=== PATIENT | female | born 1985 ===

== ENCOUNTER 2018-03-27 12:37 | Emergency (ER) | payer MEDICAID ==
[2018-03-27 12:37] VITALS: BMI 36.7
[2018-03-27 13:16] VITALS: BP 107/71; PULSE 82; RESP 18; TEMP 98.1; O2SAT 100
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
== END 2018-03-27 15:00 | disposition home or self-care (01) ==
LOC: C.ER 12:37
DX: O26.892 Other specified pregnancy related conditions, second trimester (principal); Z3A.22 22 weeks gestation of pregnancy; R10.9 Unspecified abdominal pain

== ENCOUNTER 2018-07-06 06:09 | Inpatient (IN) | payer MEDICAID ==
[2018-07-06 06:32] VITALS: BMI 38.0
[2018-07-06] MEDS ORDERED: Lactated Ringer's 1,000 ML IV ONE (06:35)
[2018-07-06] MEDS ORDERED: cefOXitin IV 2 gm in Dextrose 2 GM/50 ML BAG IVPB ONE ×2 (06:35→07:30)
[2018-07-06] MEDS ORDERED: Sodium Citrate/Citric Acid 15 ml Sol PO ONE (06:35)
[2018-07-06] MEDS ORDERED: Oxytocin 20 units in LR 2,000 ML IV ONE (07:30)
[2018-07-06] MEDS ORDERED: Sodium Citrate/Citric Acid 15 ml Sol ONE (07:31)
[2018-07-06 07:38] LABS: BASO % 0.5 % (0.0-2.0); EOS # 0.1 K/uL (0.0-0.7); EOS % 0.9 % (0.0-4.0); LYMPH # 3.3 K/uL (1.0-4.3); LYMPH % 38.9 % (20.0-40.0); MEAN CELL VOLUME 84.2 fL (81.0-99.0); MEAN CORPUSCULAR HEMOGLOBIN 28.5 pg (27.0-31.0); MEAN CORPUSCULAR HGB CONC 33.8 g/dL (33.0-37.0); MEAN PLATELET VOLUME 10.5 fL (7.2-11.7); MONO # 0.3 K/uL (0.0-0.8); MONO % 3.8 % (0.0-10.0); NEUT # 4.8 K/uL (1.8-7.0); NEUT % 55.9 % (50.0-75.0); RBC 3.87 Mil/uL (3.80-5.20); RED CELL DISTRIBUTION WIDTH 13.7 % (11.5-14.5); WHITE BLOOD COUNT 8.6 K/uL (4.8-10.8)
[2018-07-06] MEDS ORDERED: Morphine 1 mg/ml preservative-free Inj(Duramorph) ONE (09:02)
[2018-07-06] MEDS ORDERED: Oxytocin 10 Units/ml Inj ONE (09:05)
[2018-07-06] MEDS ORDERED: ePHEDrine 50 mg/ml Inj ONE (09:46)
[2018-07-06] MEDS ORDERED: Oxycodone/Acetaminophen 5/325 mg Tab PO PRN (10:26)
--- NOTE | 2018-07-06 11:17 | OBADHP ---
Datetime: 07/06/2018 07:57 Admit Comment, IP Provider: CC: Schedule c/s HPI: 32 year old female, , 1 FT girl delivery @ 6 lbs and C/s with no past medical history presents to [facility] for scheduled c/s. Per records pt LMP 10/26/17 and is LEONEL 07/12/18 per 1st s emester U/S. Pt presently denies having contractions, however, states she is having freqent mov ements. OBHx , 1st delivery 2015, 5 lb baby girl, s/p C/s @ [facility] GYNHx: irregular menstral cycle, menarch at 15 PMHx: Denies PSHx: Gastric sleeve Meds: vitamins Allergies: Seafood SHx: denies tobacco use, alcohol use, illict drug use Fhx: Mother - 59 healthy, Father - 52 - healthy Vitals: 113/70 HR 86 HEENT: Atraumatic, normocephalic Cardio: S1, S2 RR Resp: CTAL B/L Abd: Soft, nontender, 38.5 cm fundal height 32 year old F, presents for scheduled C section, currently 39 weeks and 3 days 1) Admit to L_D 2) Anticipate C/s _ start protocal 3) IV fluids 4) NPO -Solomon Barbour D.O. PGY1 Pt seen and examined with Dr. Barbour and all of his findings, assessment and POC were fully discusse d and agreed with Abdomen - PN: Normal Lungs - PN: Normal Heart - PN: Normal General - PN: Normal Presentation-Admit: Vertex FHR - Baseline A Provider: 140 Membranes, Provider: Intact Contraction Comments Provider: Ocassional Gestation - Est Wks by US: 39.3 Vital Signs Provider: Reviewed; Within Normal Limits IP Chief Complaint: Scheduled Section NICHD Variability Prov Fetus A: Moderate 6-25bpm FHR Category Provider Fetus A: Category I Genitourinary Exam: Normal EGA AdmitDate IP: 39.1 IP Adm Impression: Term, intrauterine ; No Active Labor; Intact Membranes IP Admit Plan: Initiate Section protocol
--- NOTE | 2018-07-06 11:32 | OBDS ---
DELIVERY PERSONNEL Delivery Doctor: DR CHARLEEN MEAD Scrub Nurse: Alisa Murrell Clinical Office Technician: Ang Jose RN Anesthesiologist: Manny Anderson MD MATERNAL INFORMATION Delivery Anesthesia: Spinal Medications in Delivery: PITOCIN 20 Estimated Blood Loss (ml): 600 Placenta Cultured: No Maternal Complications: None Provider Comments: Repeat LTC C/S with delivery of a viable Female from AP position and wit hout complications. Apgars 9_9 at 1 and 5 mins repectively. BW 7lbs, 1oz. Cord blood and cord pH obtained and sent.Placenta manually delivered with 3 vessel cord and discar ded. EBL 600 mls No Pathology noted Pt and both tolerated the procedure well and left the OR in S_S condition. De. Cavazos assisted throughout the entire procedure. LABOR SUMMARY EDC: 07/12/2018 00:00 No. Babies in Womb: 1 Attempted: No Labor Anesthesia: None LABOR INFORMATION Oxytocin: N/A Group B Beta Strep: Done, Result Unknown Antibiotics # of Doses: 1 Antibiotics Time of Last Dose: Steroids Given: None Reason Steroids Not Administered: Not Applicable MEMBRANES Membranes Rupture Method: Artificial Rupture of Membranes: 07/06/2018 09:34 Length of Rupture (hrs): 0.02 Amniotic Fluid Color: Clear Amniotic Fluid Amount: Moderate Amniotic Fluid Odor: Normal STAGES OF LABOR Stage 3 hrs: 0 Stage 3 min: 1 CSECTION DELIVERY Primary Indication: Previous Section Other Primary Indication: Term Secondary Indication: N/A CSection Urgency: Elective CSection Incidence: Repeat Labor: No Labor Elective: Elective CSection Incision: Lower Uterine Transverse BABY A INFORMATION Infant Delivery Date/Time: 07/06/2018 09:35 Method of Delivery: Born in Route : No : N/A Forceps: N/A Vacuum Extraction: N/A SHOULDER DYSTOCIA BABY A Infant Delivery Date/Time: 07/06/2018 09:35 PRESENTATION/POSITION BABY A Presentation: Cephalic Cephalic Presentation: Vertex Vertex Position: Right Occipital Anterior Breech Presentation: N/A PLACENTA INFORMATION BABY A Placenta Delivery Time : 07/06/2018 09:36 Placenta Method of Delivery: Expressed Placenta Status: Delivered SCORES BABY A Heart Rate 1 min: >100 bpm Resp Effort 1 min: Good Cry Reflex Irritability 1 min: Cough or Sneeze or Pulls Away Muscle Tone 1 min: Active Motion Color 1 min: Body [place], Extremities Blue Resuscitation Effort 1 min: Tactile Stimulation SCORE 1 MIN: 9 Heart Rate 5 min: >100 bpm Resp Effort 5 min: Good Cry Reflex Irritability 5 min: Cough or Sneeze or Pulls Away Muscle Tone 5 min: Active Motion Color 5 min: Body [place], Extremities Blue SCORE 5 MIN: 9 INFANT INFORMATION BABY A Gestational Age at Delivery: 39.0 Gestational Status: Term Infant Outcome : Liveborn Infant Condition : Stable Infant Sex: Female IDENTIFICATION/MEDS BABY A ID Band Number: [id number] ID Band Location: Left Leg; Left Arm Sensor Applied: Yes Sensor Number: [id number] Sensor Location : Cord Clamp WEIGHT/LENGTH BABY A Infant Birthweight (gms): 3205 Infant Weight (lb): 7 Weight (oz): 1 Infant Length Inches: 18.25 Length cms: 46.4 CORD INFORMATION BABY A No. Cord Vessels: 3 Nuchal Cord : Around Neck x1, Loose Cord pH Baby Arterial: 7.07 Cord pH Baby Venous: 7.34 Cord Blood Taken: Yes Suction: Mouth; Nose ASSESSMENT BABY A Infant Complications: None Physical Findings at Delivery: Within Normal Limits Respirations: Appears Normal Commercial Real Estate Appraiser/ALS Called : No Care By: dr monteiro Transferred To: Remains with Mother
[2018-07-06] MEDS ORDERED: DiphenhydrAMINE 50 mg/ml Inj ONE (11:38)
[2018-07-06] MEDS ORDERED: DiphenhydrAMINE 50 mg/ml Inj IVP PRN (13:20)
--- NOTE | 2018-07-06 16:11 | OBHP ---
Datetime: 07/06/2018 07:57 IP Adm Impression: Term, intrauterine ; No Active Labor; Intact Membranes IP Admit Plan: Initiate Section protocol Admit Comment, IP Provider: CC: Schedule c/s HPI: 32 year old female, , 1 FT girl delivery @ 6 lbs and C/s with no past medical history presents to [facility] [place] for scheduled c/s. Per records pt LMP 10/26/17 and is LEONEL 07/12/18 per 1st s emester U/S. Pt presently denies having contractions, however, states she is having freqent mov ements. OBHx , 1st delivery 2015, 5 lb baby girl, s/p C/s @ [facility] GYNHx: irregular menstral cycle, menarch at 15 PMHx: Denies PSHx: Gastric sleeve Meds: vitamins Allergies: Seafood SHx: denies tobacco use, alcohol use, illict drug use Fhx: Mother - 59 healthy, Father - 52 - healthy Vitals: 113/70 HR 86 HEENT: Atraumatic, normocephalic Cardio: S1, S2 RR Resp: CTAL B/L Abd: Soft, nontender, 38.5 cm fundal height 32 year old F, presents for scheduled C section, currently 39 weeks and 3 days 1) Admit to L_D 2) Anticipate C/s _ start protocal 3) IV fluids 4) NPO -Solomon Barbour D.O. PGY1 Pt seen and examined with Dr. Barbour and we discussed all of his findings, assessments and POC and a greed on. Abdomen - PN: Normal Lungs - PN: Normal Heart - PN: Normal General - PN: Normal Presentation-Admit: Vertex FHR - Baseline A Provider: 140 Membranes, Provider: Intact Contraction Comments Provider: Ocassional Gestation - Est Wks by US: 39.3 EGA AdmitDate IP: 39.1 Vital Signs Provider: Reviewed; Within Normal Limits IP Indication for Induction: Not Applicable IP Chief Complaint: Scheduled Section NICHD Variability Prov Fetus A: Moderate 6-25bpm FHR Category Provider Fetus A: Category I Genitourinary Exam: Normal
[2018-07-07 07:49] LABS: MEAN CELL VOLUME 85.5 fL (81.0-99.0); MEAN CORPUSCULAR HEMOGLOBIN 28.9 pg (27.0-31.0); MEAN CORPUSCULAR HGB CONC 33.8 g/dL (33.0-37.0); MEAN PLATELET VOLUME 9.9 fL (7.2-11.7); RBC 3.08 Mil/uL (3.80-5.20); RED CELL DISTRIBUTION WIDTH 13.8 % (11.5-14.5); WHITE BLOOD COUNT 7.8 K/uL (4.8-10.8)
[2018-07-07 08:04] LABS: HEMOGLOBIN 8.9 g/dL (11.0-16.0)
--- NOTE | 2018-07-07 09:05 | OBPPN ---
Datetime: 07/07/2018 08:59 PP Nausea Prov: Denies PP Flatus Prov: No PP BM Prov: No PP Breasts Prov: Normal PP Heart Prov: Normal PP Lungs Prov: Normal PP Abdomen/Uterus Prov: Normal PP Lochia Prov: Normal PP Vulva/Perineum Prov: Normal PP Extremities Prov: Normal PP Impression Prov: Normal progression PP Plan Prov: Continue present management PP Progress Note Prov: PT DOING WELL. NO COMPLAINTS OF PAIN. TOLERATING PO DIET, DENIES NAUSEA/VOMIT ING/ INCISION: C/D/I EXT: NO EDEMA LABS: POSTOP HGB: 8.9 S/P PLTCS POD #1 1) VSS;AFEBRILE 2) TOLERATING DIET. 3) PAIN: CONTROLLED WITH PAIN MEDS. 4) ROUTINE POST OP CARE. Vital Signs Provider PP: Reviewed
[2018-07-07] MEDS: Prenatal Multivit/Folic Acid/Iron Tab PO SCH (09:44)
[2018-07-07] MEDS: Oxycodone/Acetaminophen 5/325 mg Tab PO PRN ×2 (09:48→16:44)
--- NOTE | 2018-07-08 08:46 | OBPPN ---
Datetime: 07/08/2018 08:43 PP Pain Prov: Within normal limits PP Flatus Prov: Yes PP BM Prov: No PP Abdomen/Uterus Prov: Normal PP Impression Prov: Normal progression PP Plan Prov: Continue present management PP Progress Note Prov: A/P: s/p C/S POD #2 - stable, afebrile - +flatus, - BM, encourage ambulation - + breast/bottle - continue post op mgmt IP PP Procedures: None Vital Signs Provider PP: Reviewed; Within Normal Limits
[2018-07-08] MEDS: Prenatal Multivit/Folic Acid/Iron Tab PO SCH (09:19)
[2018-07-08] MEDS: Oxycodone/Acetaminophen 5/325 mg Tab PO PRN (15:24)
[2018-07-09] MEDS: Oxycodone/Acetaminophen 5/325 mg Tab PO PRN (04:46)
[2018-07-09] MEDS: Prenatal Multivit/Folic Acid/Iron Tab PO SCH (10:01)
[2018-07-09 15:48] VITALS: PULSE 73; RESP 18; O2SAT 99
--- NOTE | 2018-07-09 18:18 | OBDCSUM ---
Datetime: 07/09/2018 12:07 Discharged to, Provider: Home Follow up at, Provider: [facility] Disch Instr Activity: Normal activity Disch Instr Diet: Regular Discharge Instructions, Provider: Routine instructions given Discharge Diagnosis, Provider: Term Delivered Discharge Time: 07/09/2018 15:00 Follow up in weeks, Provider: one week Disch Referrals: None Contraception discussed, Prov: Yes Disch Activity Restrictions: No exercising; No lifting; Minimize stair-climbing; No sexual activity; Nothing in vagina - Seibert, tampons, douche Discharge Comment, Provider: Pt seen and examined POD # 3 S/P Repeat C/S PP H_H 8.9/26.3 / O+ Acute Anemia superimposed on chronic anemia/Asymptomatic Stable and Satisfactory condition and recovery. Discharged home with instructions and Rx for Motrin, Percocet, Feosol and Colace Advised to continue PNV daily x 4-6 months Counseled re need to increase po water intake as well as fiber in diet. Will follow with her human services care specialist in 1 weeks or as needed. Contraception after Delivery: Undecided
[2018-07-09 20:19] VITALS: BP 110/109; TEMP 97.2
--- NOTE | 2018-07-11 01:52 | OP ---
PROCEDURE DATE: 07/06/2018 PREOPERATIVE DIAGNOSES: 1. Intrauterine at 39.3 weeks. 2. History of previous section x1. 3. No care complications. 4. Requested elective repeat Section POSTOPERATIVE DIAGNOSES: 1. Intrauterine at 39.3 weeks. 2. History of previous section x1. 3. No care complications. 4. Requested elective repeat Section PROCEDURE PERFORMED: Repeat low transverse cervical section with delivery of a viable female from the AP position with 's of 9 and 9 at 1 and 5 minutes; and a weight of 7 pounds, 1 ounce. 2. Lysis of Adhesions SPECIMEN: Cord blood and cord pH were obtained and sent. Placenta with three vessel cord was manually delivered and discarded. SURGEON: Beatris Lisa DO CAR DROPPER: Rojas Cavazos MD ANESTHESIA: Spinal. ANESTHESIOLOGIST: Dr. Anderson. INDICATIONS FOR SURGERY: As I stated above, the patient has a previous section and has requested to have an electively repeat section. FINDINGS: Bilateral tubes and ovaries were within normal limits. There was no gross pathology noted. SPECIMENS: 1. Cord blood, cord pH obtained and sent. 2. Placenta, discarded. ESTIMATED BLOOD LOSS: 600 mL. COMPLICATIONS: None. PREOPERATIVE NOTE: The procedure, the risks and the possible complications were fully reviewed with the patient, to include, but not exclusively, hemorrhage, infection, injury to bowel, bladder, bilateral tubes and ovaries, internal blood vessels or any other internal organs. The patient verbalized understanding and requested to proceed and signed the consent. DESCRIPTION OF PROCEDURE: The patient was taken to the operating room, she was given a spinal form of anesthesia and she was sterilely prepped and draped in the usual manner for the above-named procedure. The Johns catheter was inserted. A time-out was then carried out as adequate and as indicated, and after ascertaining an adequate level of anesthesia, the procedure was initiated. The knife was utilized to make a low transverse skin incision in the suprapubic area following the previous scar and utilizing the Pfannenstiel technique, the abdomen was entered. Lysis of adhesions was required in order to gain access to the abdominal cavity, and the bladder flap was developed with difficulty and placed underneath the Vanessa blade. The second knife was then utilized to make a low transverse uterine incision in the lower uterine segment which was very thin, the membranes were ruptured with return of clear fluid and the infant was then delivered from the AP position. The bulb syringe was utilized to suction the naso and the oropharynx upon delivery of the head and upon completion of the delivery, which was carried out without difficulty. The cord was doubly clamped and transected, and the was passed to the Associate Program Manager in attendance for further inspection. The cord blood and the cord pH were obtained and sent and the placenta was spontaneously delivered and discarded. The uterus was exteriorized through the abdominal incision after some more lysis of adhesions in order to allow this. The endometrial cavity was cleansed with a moist lap and the uterine incision was then closed utilizing 0-PDS suture in a full-thickness manner with an adequate closure and adequate hemostasis. Bilateral tubes and ovaries were noted to be within normal limits, and after cleaning the cul-de-sac of blood clots, the uterus was repositioned in the abdominal cavity. Bilateral gutters were also cleansed, and after ascertaining adequate hemostasis at the uterine incision, we proceeded to close the abdomen in layers. The rectus muscle was reapproximated in the midline withfew interrupted sutures of 2-0 Vicryl and incorporating the peritoneum. The fascia was closed with 0 PDS and the skin was closed with the claude. Sterile dressing was applied, and after evacuating the vagina of blood clots, the procedure was terminated. All instruments and sponges were accounted for x3. The patient and the tolerated the procedure well and they both left the operating room in stable and satisfactory condition. Dr Cavazos was my physician assistant surgery througout the entire procedure and performed all the duties of a pharmaceutical assistant ie: retracting, exposing, suturing and cutting sutures, etc Beatris Lisa DO MARIVEL
== END 2018-07-09 16:00 | disposition home or self-care (01) | DRG 540 ==
LOC: C.4D 06:09 → C.4M 12:51
PROVIDERS: ADMIT Obstetrics & Gynecology; ATTEND Obstetrics & Gynecology
PROC: 10D00Z1 Extraction of Products of Conception, Low, Open Approach (ICD-10-PCS; principal; 2018-07-06)
DX: O34.211 Maternal care for low transverse scar from previous cesarean delivery (principal); O69.81X0 Labor and delivery complicated by cord around neck, without compression, not applicable or unspecified; Z3A.39 39 weeks gestation of pregnancy; Z37.0 Single live birth